=== PATIENT | female | born 1995 | race Caucasian/White ===

== ENCOUNTER 2018-06-29 23:32 | Emergency (ER) | payer OTHER ==
[~2018-06-29] VITALS: Ht 154.9 cm; Wt 81.7 kg
[~2018-06-29 23:32] MED LIST: AMOXIL 875 MG875 M1 PO; BACTRIM DS TAB1 EACH PO; DOXYCYCLINE 10100 MG PO; HYDROCODON-ACE1 EAC7 PO; NOHOMEMEDICATIONS
[2018-06-29 23:38] VITALS: BP 141/85
[2018-06-29] MEDS ORDERED: CIPROFLOXIN HC2.5 M1 OTIC (23:50)
== END 2018-06-29 23:55 | disposition home or self-care (01) ==
LOC: M.ERS 23:32
DX: H69.83 Other specified disorders of Eustachian tube, bilateral (principal); H60.93 Unspecified otitis externa, bilateral

== ENCOUNTER 2018-11-13 12:36 | Emergency (ER) | payer OTHER ==
[~2018-11-13] VITALS: Ht 154.9 cm; Wt 83.9 kg
[~2018-11-13 12:36] MED LIST changes: +CIPROFLOXIN HC2.5 M1 OTIC
[2018-11-13 12:45] VITALS: BP 108/79
[2018-11-13] MEDS ORDERED: KEFLEX500 M1 PO (13:40)
[2018-11-13] MEDS ORDERED: ACETAMINOPHEN-1 EAC1 PO (13:40)
== END 2018-11-13 13:59 | disposition home or self-care (01) ==
LOC: M.ERS 12:36
DX: J02.9 Acute pharyngitis, unspecified (principal)